=== PATIENT | male | born 2000 | race African-American/Black ===

== ENCOUNTER 2021-11-26 08:15 | Emergency (ER) | payer SELFPAY ==
[~2021-11-26] VITALS: Ht 170.2 cm; Wt 68.1 kg
[2021-11-26] MEDS ORDERED: IBUP200T46 PO (08:54)
[2021-11-26] MEDS ORDERED: ACETAMINOPHEN 500 MG TAB PO ONE (08:55)
[2021-11-26 12:32] VITALS: BP 130/82
== END 2021-11-26 12:41 | disposition home or self-care (01) ==
LOC: M ED 11:49
DX: U07.1 COVID-19 (principal); R50.9 Fever, unspecified; M54.50 Low back pain, unspecified